=== PATIENT | male | born 1935 | race Hispanic/Latino ===

== ENCOUNTER 2016-07-07 15:20 | Emergency (ER) | payer MEDICARE ==
[2016-07-07 16:35] VITALS: BP 146/85
[2016-07-07 17:15] LABS: Basophils % (Auto) 0.8 % (0.0-1.8); Eosinophils % (Auto) 4.5 % (0.0-4.3); Hematocrit 42.6 % (35.5-45.6); Mean Corpuscular HGB Conc 33 % (32-34); Mean Corpuscular Hemoglobin 29 pg (28-32); Mean Corpuscular Volume 89 fl (84-94); Platelet Count 180 K/mm3 (140-440); Red Blood Count 4.79 M/mm3 (3.65-5.03); Red Cell Distribution Width 14.5 % (13.2-15.2); White Blood Count 8.3 K/mm3 (4.5-11.0)
[2016-07-07 17:32] LABS: Anion Gap 19 mmol/L; BUN/Creatinine Ratio 18.57; Blood Urea Nitrogen 13 mg/dL (9-20); Calcium 8.9 mg/dL (8.4-10.2); Carbon Dioxide 27 mmol/L (22-30); Chloride 98.2 mmol/L (98-107); Glucose 92 mg/dL (75-100); Potassium 3.8 mmol/L (3.6-5.0); Sodium 140 mmol/L (137-145)
[2016-07-07 18:06] LABS: Urine Drugs of Abuse Note Disclamer
[2016-07-07 18:23] LABS: Bilirubin,Urine NEG (Negative); Blood,Urine LG (Negative); Ketones,Urine TR mg/dL (Negative); Leukocyte Esterase,Urine NEG (Negative); Mucus,Urine FEW /HPF; Nitrite,Urine NEG (Negative)
--- NOTE | 2016-07-07 20:17 | Emergency Department Report ---
ED Psych HPI - General Chief Complaint: Psych Stated Complaint: ANISHA ONOFRE Time Seen by Provider: 07/07/16 20:03 Source: family Mode of arrival: Ambulatory - History of Present Illness Initial Comments: Patient presents to the ED with a history of dementia. He recently was placed in an assisted living facility. Family indicates that over the last week he has not done well in this situation. He has had them several outbursts where he has taken a fire extinguisher and tried to break out a window. He has also gone into other clients rooms. Been no change in his medications. He has had several falls. In of them have been of significant consequence. Alondra indicate he has had a poor sleeping schedule lately. He apparently has had decreased ability to ambulate over the past week as well. They did report normal appetite. No fever reported. MD Complaint: other (agitation) -: Gradual, week(s) (1) History of same: No Quality: intermittent Improves With: none Worsens With: none Associated Symptoms: insomnia Treatments Prior to Arrival: other (klonopin) - Related Data Allergies Allergy/AdvReac Type Severity Reaction Status Date / Time aspirin AdvReac HEART RACE Verified 07/07/16 16:38 clarithromycin [From Biaxin] AdvReac Rash Verified 07/07/16 16:38 codeine AdvReac Rash Verified 07/07/16 16:38 Penicillins AdvReac Rash Verified 07/07/16 16:38 quinidine AdvReac Rash Verified 07/07/16 16:38 sulfamethoxazole AdvReac Rash Verified 07/07/16 16:38 ED Review of Systems ROS: Stated complaint: ANISHA ONOFRE Other details as noted in HPI Comment: All other systems reviewed and negative Cardiovascular: denies: chest pain, dyspnea on exertion Neurological: abnormal gait Psychiatric: other (agitation) ED Past Medical Hx - Past Medical History Hx Hypertension: Yes Hx Psychiatric Treatment: Yes (DEPRESSION / ANXIETY) Hx Dementia: Yes Additional medical history: ATRIAL FIB - Surgical History Hx Pacemaker: Yes (X 2) Hx Cholecystectomy: Yes Additional Surgical History: CORNEAL TRANSPLANT X 2. LEFT KNEE SURGERY - Social History Smoking Status: Never Smoker Substance Use Type: None ED Physical Exam - General Limitations: Altered Mental Status General appearance: alert, in no apparent distress, other (calm) - Head Head exam: Present: atraumatic - Eye Eye exam: Present: normal appearance, EOMI. Absent: scleral icterus - ENT ENT exam: Present: normal exam, normal orophraynx, mucous membranes dry - Neck Neck exam: Present: normal inspection. Absent: tenderness, meningismus - Respiratory Respiratory exam: Present: normal lung sounds bilaterally. Absent: respiratory distress, wheezes - Cardiovascular Cardiovascular Exam: Present: regular rate, normal rhythm - GI/Abdominal GI/Abdominal exam: Present: soft. Absent: tenderness, guarding - Rectal Rectal exam: Present: deferred - Extremities Exam Extremities exam: Present: normal inspection, full ROM, other (several areas of varying aged bruises). Absent: tenderness - Back Exam Back exam: Present: normal inspection. Absent: tenderness - Neurological Exam Neurological exam: Present: alert, oriented X3 (slow to answer questions), abnormal gait (wide, somewhat unsteady) - Skin Skin exam: Present: warm, dry, intact ED Course Vital Signs 07/07/16 16:31 Temperature 98.1 F Pulse Rate 72 Respiratory 19 Rate Blood Pressure 146/85 O2 Sat by Pulse 99 Oximetry - Reevaluation(s) Reevaluation #1: 07/07/16 20:26 Labs are noted. No concerning findings noted. I will obtain CT brain as well due to patient having sustained a couple of falls over the past several weeks. The patient has already been accepted at [facility] pending medical clearance. Reevaluation #2: 07/07/16 22:07 CT brain is negative for acute process. I feel the patient is medically clear. I feel he is stable for [facility] into need evaluation regarding medication management. ED Medical Decision Making - Lab Data Result diagrams: 07/07/16 16:55 07/07/16 16:55 Critical care attestation.: If time is entered above; I have spent that time in minutes in the direct care of this critically ill patient, excluding procedure time. ED Disposition Clinical Impression: Agitation Disposition: DC/TX PSY HOSP/PSY UNIT Is pt being admited?: No Does the pt Need Aspirin: No Condition: Stable Additional Instructions: Go to [facility] for continued medical management. Referrals: PRIMARY CARE, [Primary Care Provider] - 3-5 Days Time of Disposition: 22:08
--- NOTE | 2016-07-07 22:10 | Cat Scan Report ---
FINAL REPORT EXAM: CT HEAD/BRAIN WO CON HISTORY: Mental status chagne TECHNIQUE: CT imaging is acquired through the brain without contrast. Transaxial reformations are provided. PRIORS: None. FINDINGS: Ventricles and CSF spaces are proportionately enlarged, consistent with parenchymal atrophy. Scattered deep and subcortical white matter hypodense foci are confluent in some areas and are compatible with microvascular angiopathy. No acute intracranial hemorrhage or mass effect. Calvarium and superficial scalp are intact. No significant abnormality within the partially imaged paranasal sinuses or mastoid air cells. IMPRESSION: No acute intracranial abnormality. Consider MRI follow-up as warranted. 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
== END 2016-07-08 02:05 ==
LOC: ED 15:20
DX: R45.1 Restlessness and agitation (principal); I10 Essential (primary) hypertension; F41.9 Anxiety disorder, unspecified; F32.9 Major depressive disorder, single episode, unspecified; F03.90 Unspecified dementia, unspecified severity, without behavioral disturbance, psychotic disturbance, mood disturbance, and anxiety; I48.91 Unspecified atrial fibrillation; Z88.0 Allergy status to penicillin; Z88.6 Allergy status to analgesic agent; Z88.1 Allergy status to other antibiotic agents; Z88.8 Allergy status to other drugs, medicaments and biological substances
CPT/HCPCS: 36415; 70450; 80048; 80307; 81001; 85025; 99285; G0480; 80320